=== PATIENT | female | born 1995 | race African-American/Black ===

== ENCOUNTER 2017-02-10 10:56 | Emergency (ER) | payer MEDICAID ==
[~2017-02-10] VITALS: Ht 170.2 cm; Wt 66.0 kg
[2017-02-10 10:57] VITALS: BP 122/68; PULSE 98; RESP 20; TEMP 98.7; O2SAT 100
--- NOTE | 2017-02-10 11:29 | PD ---
Physical Exam Date Seen by Provider: Feb 10, 2017 Narrative Pt is a 21 year old female presenting with left lower tooth/gum pain. Pain is a 7/10, symptoms started 4 days ago. Left lower jaw is edematous. No fevers or chills. Pt is broken teeth in that area. Pt is 27 weeks , with routine care. Denies any significant med hx. VSS. Pt awaiting bed placement. Data Data Last Documented VS Vital Signs Date Time Temp Pulse Resp B/P Pulse Ox O2 Delivery O2 Flow Rate FiO2 02/10/17 10:57 98.7 98 20 122/68 100 Room Air MDM Supervised Visit with RAUL: Joann Myrick Feb 10, 2017 11:29
[2017-02-10] MEDS ORDERED: PREN29TA PO (11:56)
--- NOTE | 2017-02-10 12:00 | PD ---
HPI . dental pain for 3 days Chief Complaint: Oral / Dental Pain or Problem Time Seen by Provider: 12:00 Travel History International Travel<30 days: No Contact w/Intl Traveler<30days: No Traveled to known affect area: No History of Present Illness HPI 21-year-old female who is 27 weeks here with complaints of dental pain for the past several days. Patient tells me that all of a sudden she developed some right sided lower jaw dental pain. She has some mild swelling and decided to come to the emergency department for further evaluation. She does not have a dentist locally as she is not from the area and here for college. She is following with Dr. Christensen for her [facility] needs. She denies any fever or chills and has no other complaints. [facility] Past Medical History Diabetes: No ?: LMP: lmp jul Social History Tobacco Use: No Allergies-Medications (Allergen,Severity, Reaction): Coded Allergies: No Known Allergies (Unverified , 02/10/17) Reported Meds & Prescriptions Reported Meds & Active Scripts Active Reported Plus Iron 29-1 mg ( Vit-Iron Carbonyl) 1 Tab Tab 1 Tab PO DAILY Review of Systems General / Constitutional: No: Fever Eyes: No: Visual changes HENT: Positive: Dental Difficulties, No: Headaches Cardiovascular: No: Chest Pain or Discomfort Respiratory: No: Shortness of Breath Gastrointestinal: No: Abdominal Pain Genitourinary: No: Dysuria Musculoskeletal: No: Pain Skin: No Rash Neurologic: No: Weakness Psychiatric: No: Depression Endocrine: No: Polydipsia Hematologic/Lymphatic: No: Easy Bruising Physical Exam Narrative GENERAL: AAO x 3, no acute distress, Well-nourished, well-developed patient. SKIN: Warm and dry. No visible rashes or bruising. HEAD: Normocephalic and atraumatic. EYES: No scleral icterus. No injection or drainage. ENT: No nasal drainage noted. Mucous membranes pink. Airway patent. #30 appears to be cracked without any evidence of abscess or fluid collection. The gumline is indurated without any fluctuance, fluid collection or erythema NECK: Supple, trachea midline. No JVD. No lymphadenopathy CARDIOVASCULAR: Regular rate and rhythm without murmurs, gallops, or rubs. RESPIRATORY: Breath sounds equal bilaterally. No accessory muscle use. No rhonchi or rales. GASTROINTESTINAL: Visibly . EXTREMITIES: No cyanosis or edema. BACK: Nontender without obvious deformity. No CVA tenderness. PSYCH: AAO x 3, normal affect. Data Data Last Documented VS Vital Signs Date Time Temp Pulse Resp B/P Pulse Ox O2 Delivery O2 Flow Rate FiO2 02/10/17 10:57 98.7 98 20 122/68 100 Room Air MDM Medical Decision Making Medical Screen Exam Complete: Yes Emergency Medical Condition: Yes Medical Record Reviewed: Yes Differential Diagnosis Dentalgia, cracked tooth, less likely oral abscess Narrative Course 21-year-old female who is 27 weeks here with complaints of dental pain for the past several days. Patient tells me that all of a sudden she developed some right sided lower jaw dental pain. She has some mild swelling and decided to come to the emergency department for further evaluation. She does not have a dentist locally as she is not from the area and here for college. She is following with Dr. Christensen for her [facility] needs. She denies any fever or chills and has no other complaints. Patient seen and examined. She does not have any type of oral abscess or fluid collection. There is an obvious a broken tooth that appears to be causing her discomfort and swelling. This is a problem for the dentist. They will need to perform an extraction. I've explained this to the patient. I've advised her to reach out to her [facility] Diagnosis Primary Impression: Dentalgia Additional Impression: Broken or cracked tooth, nontraumatic Patient Instructions: General Instructions Additional Instructions: Use Tylenol for pain. Please see a dentist as soon as possible for extraction of this broken tooth. If this area starts to swell or if you notice any drainage, please return to the emergency department. Please follow-up with your [facility]. [place] for worsening signs of infection which include increased fever, redness , increased warmth, purulent drainage, increased swelling or streaking. If these develop, please return to the nearest emergency department. Disposition: 01 DISCHARGE HOME Condition: Stable Amalia Billings Feb 10, 2017 12:00
== END 2017-02-10 12:31 | disposition home or self-care (01) ==
LOC: NEPK 10:56
DX: K08.89 Other specified disorders of teeth and supporting structures (principal); S02.5XXA Fracture of tooth (traumatic), initial encounter for closed fracture; X58.XXXA Exposure to other specified factors, initial encounter; Z3A.27 27 weeks gestation of pregnancy
CPT/HCPCS: 99283